=== PATIENT | female | born 2000 | race Caucasian/White ===

== ENCOUNTER 2022-05-29 18:05 | Emergency (ER) | payer SELFPAY ==
[2022-05-29] MEDS ORDERED: Ibuprofen 800 MG TAB ONE (20:04)
== END 2022-05-29 20:00 | disposition home or self-care (01) ==
LOC: ERS 18:05
DX: S93.401A Sprain of unspecified ligament of right ankle, initial encounter (principal); Y93.67 Activity, basketball; Z87.891 Personal history of nicotine dependence

== ENCOUNTER 2022-07-02 11:55 | Emergency (ER) | payer SELFPAY ==
[2022-07-02 13:02] LABS: SARS-CoV-2 NAA Rapid Test Not Detected (NotDetected)
== END 2022-07-02 13:56 | disposition home or self-care (01) ==
LOC: ERS 11:55
DX: N39.0 Urinary tract infection, site not specified (principal); J32.9 Chronic sinusitis, unspecified; Z20.822 Contact with and (suspected) exposure to COVID-19
CPT/HCPCS: 99283